=== PATIENT | male | born 1965 | race Two or more races ===

== ENCOUNTER → 2024-08-08 | Outpatient (CLI) | payer MEDICAID, SELFPAY ==
--- NOTE | 2024-08-08 10:28 | XR_ITS ---
Exam: elbow bilateral, 6 views Technique: Elbow AP, oblique lateral each elbow total 6 views Exam date and time: August 08, 2024 1110 hours INDICATIONS: Palpable lump on the elbow is several years FINDINGS: Moderate bilateral elbow osteoarthritis Bilateral soft tissue prominence dorsal to the olecranon with tiny calcifications No acute fracture involving either elbow IMPRESSION: Bilateral moderate elbow osteoarthritis Olecranon bursitis, suggest ultrasound soft tissue dorsal bilateral elbows follow-up.
== END | disposition home or self-care (01) ==
LOC: CDIM 10:19
PROVIDERS: PCP Nurse Practitioner Primary Care; Referring Provider Nurse Practitioner Gerontology; Visit Provider Nurse Practitioner Gerontology
DX: M19.022 Primary osteoarthritis, left elbow (principal); M19.021 Primary osteoarthritis, right elbow; M70.22 Olecranon bursitis, left elbow; M70.21 Olecranon bursitis, right elbow
CPT/HCPCS: 73080